=== PATIENT | female | born 1990 | race Two or more races ===

== ENCOUNTER 2017-08-16 22:26 | Outpatient (CLI) | payer OTHER ==
[~2017-08-16 22:26] MED LIST: DICLEGIS DR 101 EACH; ONE A DAY PREN1 EACH
== END 2017-08-17 15:00 | disposition home or self-care (01) ==
LOC: OBS/DEL 22:26
DX: O60.02 Preterm labor without delivery, second trimester (principal); O26.892 Other specified pregnancy related conditions, second trimester; O23.32 Infections of other parts of urinary tract in pregnancy, second trimester; R10.2 Pelvic and perineal pain; Z34.02 Encounter for supervision of normal first pregnancy, second trimester